=== PATIENT | male | born 2000 | race Asian ===

== ENCOUNTER → 2018-03-15 00:45 | Emergency (ER) | payer OTHER ==
--- NOTE | 2018-03-15 01:50 | ED ---
Laceration/Wound HPI - HPI Summary HPI Summary: 18-year-old male presents with laceration to right ankle. He states he kicked a window. he states there may be foreign body in the wound. Area is not actively bleeding. No numbness or tingling. He has full range of motion of his leg. tetanus up-to-date. Has no medical conditions. no other injury. - History of Current Complaint Stated Complaint: RT FOOT LAC Time Seen by Provider: 03/15/18 01:02 Pain Intensity: 5 - Allergy/Home Medications Allergies/Adverse Reactions: Allergies Allergy/AdvReac Type Severity Reaction Status Date / Time No Known Allergies Allergy Verified 03/15/18 00:54 PMH/Surg Hx/FS Hx/Imm Hx Endocrine/Hematology History: Denies: Hx Anticoagulant Therapy Respiratory History: Denies: Hx Asthma Infectious Disease History: No Infectious Disease History: Reports: Traveled Outside the [place] in Last 30 Days - Family History Known Family History: Positive: Non-Contributory - Social History Alcohol Use: None Substance Use Type: Reports: None Smoking Status (MU): Never Smoked Tobacco Review of Systems Negative: Fever Negative: Chest Pain Negative: Shortness Of Breath Positive: Other - lacerations right ankle All Other Systems Reviewed And Are Negative: Yes Physical Exam Triage Information Reviewed: Yes Vital Signs On Initial Exam: Initial Vitals Temp Pulse Resp BP Pulse Ox 99.3 F 81 18 133/60 97 03/15/18 00:47 03/15/18 00:47 03/15/18 00:47 03/15/18 00:47 03/15/18 00:47 Vital Signs Reviewed: Yes Appearance: Positive: Well-Appearing Skin: Positive: Warm, Dry, Other - 3cm by 2cm laceration of right ankle, 1cm by 1/2cm right ankle, abrasions to right leg Head/Face: Positive: Normal Head/Face Inspection Eyes: Positive: Normal, Conjunctiva Clear ENT: Positive: Pharynx normal Respiratory/Lung Sounds: Positive: Clear to Auscultation, Breath Sounds Present Cardiovascular: Positive: Normal, RRR Musculoskeletal: Positive: Strength/ROM Intact - right ankle, Other - good pulses Neurological: Positive: Normal Psychiatric: Positive: Normal Procedures - Laceration/Wound Repair 1 Location: Other - right ankle Description: Irregular Anesthesia: Local, 1.0%, Epi Length, Depth and Shape: 3cm by 2cm Irrigated w/ Saline (ccs): 400 Laceration/Wound Explored: no foreign body removed Closure: Single Layer Suture Type: Prolene Number of Sutures: 4 - 1 vertical mattress, 3 simple Layer Closure?: No Sterile Dressing Applied?: No - telfa and kat 2 Location: Other - right ankle Description: Irregular Anesthesia: Local, 1.0%, Epi Length, Depth and Shape: 1cm by 1/2cm Laceration/Wound Explored: no foreign body removed Suture Type: Prolene Number of Sutures: 1 Layer Closure?: No Sterile Dressing Applied?: No Diagnostics - Vital Signs Vital Signs Temp Pulse Resp BP Pulse Ox 03/15/18 00:47 99.3 F 81 18 133/60 97 - Laboratory Lab Statement: Any lab studies that have been ordered have been reviewed, and results considered in the medical decision making process. Laceration Repair Course/Dx - Course Course Of Treatment: 18-year-old male presents with laceration to right ankle. He states he kicked a window. he states there may be foreign body in the wound. Area is not actively bleeding. No numbness or tingling. He has full range of motion of his leg. tetanus up-to-date. Has no medical conditions. no other injury. On exam has couple abrasions to leg. Has 3cm by 2 cm laceration just above the lateral malleolus of the right ankle. Cleaned area no foreign body removed. Placed 4 stitches with one of them being vertical mattress. Cleaned other 1cm by 1/2cm laceration and place 1 stitch. Told to keep the area clean and dry. We'll prescribe Keflex incase foreign body still present. Patient understands agrees plan. - Differential Dx Differental Diagnoses: Abrasion, Avulsion, Laceration - Clinical Impression Provider Diagnoses: Laceration of right ankle Discharge - Sign-Out/Discharge Documenting (check all that apply): Patient Departure - Discharge Plan Condition: Good Disposition: HOME Prescriptions: Cephalexin CAP* [Keflex CAP*] 500 mg PO BID #10 cap Patient Education Materials: Care For Your Stitches (ED) Referrals: No Primary Care Phys,NOPCP [Primary Care Provider] - Additional Instructions: Take Tylenol or ibuprofen for pain every 6 hours as needed Keep area clean and dry for 24 hours take keflex twice a day for 5 days Return to ED or primary in 8-10 days to have sutures removed Return to ED if develop signs of infection such as fever, spreading redness, or pus. - Billing Disposition and Condition Condition: GOOD Disposition: Home
[2018-03-15 02:23] VITALS: BP 114/71
== END | disposition home or self-care (01) ==
LOC: ED 00:45
DX: S91.011A Laceration without foreign body, right ankle, initial encounter (principal); W22.09XA Striking against other stationary object, initial encounter; W25.XXXA Contact with sharp glass, initial encounter; Y92.9 Unspecified place or not applicable
CPT/HCPCS: 12001; 99281